=== PATIENT | male | born 1960 | race Caucasian/White ===

== ENCOUNTER 2021-11-30 20:03 | Emergency (ER) | payer OTHER ==
[2021-11-30] MEDS ORDERED: Sodium Chloride 0.9% 1,000 ML IV ONE (22:26)
[2021-11-30] MEDS ORDERED: Ketorolac 30 MG/ML SDV IVPUSH ONE (22:26)
[2021-11-30] MEDS ORDERED: diphenhydrAMINE 50 MG/ML SDV IVPUSH ONE (22:26)
[2021-11-30] MEDS ORDERED: Metoclopramide 10 MG/2 ML SDV IVPUSH ONE (22:26)
[2021-11-30 23:49] LABS: CARBON DIOXIDE,CO2 25.5 mmol/L (21.0-32.0); POTASSIUM,K 3.7 mmol/L (3.5-5.1)
== END 2021-12-01 00:29 | disposition home or self-care (01) ==
LOC: EDSEX 20:03 → MW.ED 20:03
DX: G43.909 Migraine, unspecified, not intractable, without status migrainosus (principal); Z91.048 Other nonmedicinal substance allergy status
CPT/HCPCS: 36415; 80053; 83735; 85025; 96361; 96374; 96375; 99283; J1200; J1885; J2765; J7030